=== PATIENT | male | born 1970 | race African-American/Black ===

== ENCOUNTER 2016-11-19 06:52 | Inpatient (IN) | payer OTHER ==
[~2016-11-19] VITALS: Ht 182.9 cm; Wt 84.8 kg
[~2016-11-19 06:52] MED LIST: AMBIEN10 MG PO; CELEXA20 MG PO; CITALOPRAM HBR20 MG PO; DESYREL100 MG PO; PROTONIX40 MG PO; PT DOESN'T KNOW; XANAX0.5 MG PO; celeXA PO
[2016-11-19 08:11] LABS: EOSINOPHIL (%) 4.4 % (0-5); EOSINOPHIL COUNT 0.2 K/uL (0-0.3); HEMATOCRIT 45.3 % (38.0-50.0); IMMATURE GRANULOCYTE (%) 0.2 % (0.0-0.7); IMMATURE GRANULOCYTE COUNT 0.1 K/uL; LYMPHOCYTE COUNT 1.6 K/uL (1.0-2.8); MCH 31.5 PG (29.0-34.0); MCHC 35.1 G/DL (30.0-36.0); MCV 89.9 FL (86-99); MONOCYTE (%) 13.3 % (3-12); MONOCYTE COUNT 0.7 K/uL (0-0.8); NEUTROPHIL (%) 49.6 % (45-76); NEUTROPHIL COUNT 2.5 K/uL (1.8-6.4); PLATELET COUNT 196 K/uL (156-360); RBC DIS.WIDTH-CV 13.5 % (11.8-14.6); RBC DIS.WIDTH-SD 43.7 % (39-53); RED BLOOD COUNT 5.04 M/uL (4.00-5.50)
[2016-11-19 08:43] LABS: ANION GAP 8 MEQ/L (2-14); CHLORIDE 99 MEQ/L (99-109); SAMPLE HEMOLYSIS CHECK 0; SAMPLE ICTERIC CHECK 0; SAMPLE LIPEMIA CHECK 0; SODIUM 135 MEQ/L (136-147)
[2016-11-19 08:49] LABS: GFR ESTIMATE (CALCULATED) > 59 mL/min/; GLUCOSE 105 mg/dL (70-99); SERUM ETHYL ALCOHOL < 10 mg/dL; UREA NITROGEN (BUN) 11 mg/dL (9-23)
[2016-11-19] MEDS ORDERED: AMBIEN10 MG PO (10:07)
[2016-11-19] MEDS ORDERED: CLONAZEPAM1 MG PO (10:07)
[2016-11-19] MEDS ORDERED: CELEXA40 MG PO ×2 (10:08→10:09)
[2016-11-19 11:48] LABS: AMPHETAMINE NEGATIVE (500 ng/mL); BARBITURATES NEGATIVE (200 ng/mL); BENZODIAZEPINES NEGATIVE (150 ng/mL); COCAINE PRESUMPTIVE POSITIVE (150 ng/mL); INTERNAL CONTROLS VALID? YES; METHADONE NEGATIVE (200 ng/mL); METHAMPHETAMINE NEGATIVE (500 ng/mL); OPIATES (MORPHINE) NEGATIVE (100 ng/mL); OXYCODONE NEGATIVE (100 ng/mL); PHENCYCLIDINE NEGATIVE (25 ng/mL); PROPOXYPHENE NEGATIVE (300 ng/mL); THC CANNABINOIDS PRESUMPTIVE POSITIVE (50 ng/mL); TRICYCLIC ANTIDEPRESSANTS NEGATIVE (300 ng/mL)
[2016-11-19 11:49] LABS: ADD MEDTOX COMMENT Y
[2016-11-19 12:30] VITALS: BP 141/99
[2016-11-19 15:34] VITALS: BP 125/63
[2016-11-20 07:56] VITALS: BP 122/59
== END 2016-11-20 12:44 | disposition home or self-care (01) | DRG 881 ==
LOC: EME 06:52 → EDOF 09:23 → 1WEST 09:23 → EDOF 09:37 → 1WEST 12:03
PROVIDERS: Physician Assistant
DX: F32.9 Major depressive disorder, single episode, unspecified (principal); R45.851 Suicidal ideations; F10.10 Alcohol abuse, uncomplicated; F14.90 Cocaine use, unspecified, uncomplicated; F60.2 Antisocial personality disorder; F17.210 Nicotine dependence, cigarettes, uncomplicated; Z76.5 Malingerer [conscious simulation]; R45.850 Homicidal ideations; Z59.0 Homelessness
CPT/HCPCS: 80048; 84999; 85025; 90839; 99281; 99285; G0480